=== PATIENT | female | born 1945 | race Two or more races ===

== ENCOUNTER 2019-09-28 14:31 | Emergency (ER) | payer MEDICARE, OTHER ==
[~2019-09-28] VITALS: Ht 165.1 cm; Wt 70.8 kg
--- NOTE | 2019-09-28 14:57 | NUR ---
BIB [facility] C/O FEELING DIZZY X 3 DAYS, NO RELIEF WITH MECLIZINE, TO ER BED 10, HOOKED TO MONITOR, CHANGED TO HOSP GOWN, WARM BLANKET PROVIDED, PATIENT AOx4, BREATHING EVEN AND UNLABORED, NAD NOTED. AWAITING MD LE
--- NOTE | 2019-09-28 14:58 | NUR ---
DR FELIZ AT BEDSIDE
[2019-09-28] MEDS ORDERED: FURO40TA5 PO (15:20)
[2019-09-28] MEDS ORDERED: NIFE-34 PO (15:20)
[2019-09-28] MEDS ORDERED: SERT100T12 PO (15:20)
[2019-09-28] MEDS ORDERED: ACET-1262 PO (15:20)
[2019-09-28] MEDS ORDERED: METO25TA20 PO (15:20)
[2019-09-28] MEDS ORDERED: ASPI-1152 PO (15:20)
[2019-09-28] MEDS ORDERED: HYDR-4077 PO (15:20)
[2019-09-28] MEDS ORDERED: ATOR40TA PO (15:20)
[2019-09-28] MEDS ORDERED: CELE-85 PO (15:20)
[2019-09-28] MEDS ORDERED: CARB1TAB21 PO (15:20)
[2019-09-28] MEDS ORDERED: METF500T20 PO (15:20)
[2019-09-28] MEDS ORDERED: CYAN-51 PO (15:20)
[2019-09-28] MEDS ORDERED: PRAM0.5T11 PO (15:20)
[2019-09-28] MEDS ORDERED: CLOP75TA15 PO (15:20)
[2019-09-28] MEDS ORDERED: MECL-159 PO (15:20)
[2019-09-28] MEDS ORDERED: ALPR0.5T8 PO (15:20)
[2019-09-28] MEDS ORDERED: ERGO500014 PO (15:20)
[2019-09-28] MEDS ORDERED: diphenhydrAMINE HCL 50 MG/ML VIAL ONE (15:20)
[2019-09-28] MEDS ORDERED: MOEX7.5T2 PO (15:20)
[2019-09-28] MEDS ORDERED: DIAZEPAM 5 MG TABLET ONE (15:21)
[2019-09-28 15:25] LABS: BASOPHILS % (AUTO) 0.3 % (0.0-2.0); EOSINOPHILS % (AUTO) 1.7 % (0.0-6.0); HEMATOCRIT 34 % (33-45); HEMOGLOBIN 11.2 g/dL (11.5-14.8); LYMPHOCYTES # (AUTO) 1.1 /CMM (0.8-4.8); LYMPHOCYTES % (AUTO) 16.5 % (20.0-44.0); MEAN CORPUSCULAR HGB CONC 33 g/dl (31.0-36.0); MEAN CORPUSCULAR VOLUME 85 fL (82-100); MONOCYTES # (AUTO) 0.4 /CMM (0.1-1.30); MONOCYTES % (AUTO) 6.9 % (2.0-12.0); NEUTROPHILS # (AUTO) 4.8 /CMM (1.8-8.9); NEUTROPHILS % (AUTO) 74.6 % (43.0-81.0); PLATELET COUNT (AUTO) 250 /CMM (150-450); WHITE BLOOD COUNT (AUTO) 6.4 K/uL (4.3-11.0)
[2019-09-28] MEDS ORDERED: diphenhydrAMINE HCL 50 MG/ML VIAL IV ONE (15:30)
[2019-09-28] MEDS ORDERED: DIAZEPAM 10 MG TABLET PO ONE (15:30)
[2019-09-28 15:37] LABS: CARBON DIOXIDE 29 mmol/L (21-32); CHLORIDE 105 mmol/L (98-107); CREATININE 1.5 mg/dL (0.6-1.3); GLUCOSE 165 mg/dL (74-106); POTASSIUM 4.3 mmol/L (3.5-5.1); SODIUM SERUM 142 mmol/L (136-145); UREA NITROGEN, BLOOD 31 mg/dL (7-18)
[2019-09-28 15:42] LABS: ALANINE AMINOTRANSFERASE < 6 U/L (12-78); ALBUMIN 3.3 g/dL (3.4-5.0); ALKALINE PHOSPHATASE 142 U/L (46-116); ASPARTATE AMINOTRANSFERASE 13 U/L (15-37); BILIRUBIN,DIRECT 0.1 mg/dL (0.0-0.2); BILIRUBIN,TOTAL 0.3 mg/dL (0.2-1.0); TOTAL PROTEIN, SERUM 7.3 g/dL (6.4-8.2)
[2019-09-28] MEDS ORDERED: IV NS 0.9% 1,000 ML BAG IV ONE (16:30)
--- NOTE | 2019-09-28 16:52 | NUR ---
URINE SAMPLE SENT TO LAB
[2019-09-28 16:55] LABS: BILIRUBIN,URINE Negative (NEGATIVE); BLOOD, URINE Negative Ery/uL (NEGATIVE); COLOR,URINE Yellow (YELLOW); KETONES,URINE Negative (NEGATIVE); LEUKOCYTE ESTERASE ,URINE Trace (NEGATIVE); NITRITE, URINE Negative (NEGATIVE); PH,URINE 5.5 (5.0-8.0); PROTEIN,URINE Negative (NEGATIVE); UGLUCOSE Negative (NEGATIVE); UROBILINOGEN,URINE 0.2 EU/dL (0.2)
[2019-09-28 16:56] LABS: APPEARANCE,URINE SLIGHTLY HAZY (CLEAR)
[2019-09-28 17:15] LABS: BACTERIA,URINE Few /HPF (None Seen); RBC,URINE 0-2 /HPF (0-2); SQUAMOUS EPITHELIAL CELL,UR Moderate /HPF (None Seen)
--- NOTE | 2019-09-28 17:58 | NUR ---
IV removed. Catheter intact and site benign. Pressure and 4x4 applied to site. No bleeding noted.Patient discharged to home with family in stable condition. Written and verbal after care instructions given. Patient verbalizes understanding of instruction. Assisted out of the ED via wheelchair.
[2019-09-28 17:59] VITALS: BP 136/67
== END 2019-09-28 18:06 | disposition home or self-care (01) ==
LOC: ER 14:34
DX: R42 Dizziness and giddiness (principal); E86.0 Dehydration; I10 Essential (primary) hypertension; E78.5 Hyperlipidemia, unspecified; E11.9 Type 2 diabetes mellitus without complications; G20 Parkinson's disease; E66.01 Morbid (severe) obesity due to excess calories; Z68.26 Body mass index [BMI] 26.0-26.9, adult; Z95.5 Presence of coronary angioplasty implant and graft; Z98.890 Other specified postprocedural states; Z79.82 Long term (current) use of aspirin; Z79.899 Other long term (current) drug therapy; Z88.8 Allergy status to other drugs, medicaments and biological substances
CPT/HCPCS: 36415; 70450; 71045; 80048; 80076; 81001; 84484; 85025; 85730; 93005; 96361; 96374; 99285; J1200; J7030; 81000-TC

== ENCOUNTER 2022-11-13 23:33 | Emergency (ER) | payer MEDICARE, OTHER ==
[~2022-11-13] VITALS: Ht 165.1 cm; Wt 90.7 kg
[~2022-11-13 23:33] MED LIST: ACET-1262 PO; ALPR0.5T8 PO; ASPI-1420 PO; ATOR40TA PO; CARB1TAB21 PO; CELE-85 PO; CLOP75TA15 PO; CYAN-51 PO; ERGO500093 PO; FURO40TA5 PO; HYDR-4077 PO; MECL-159 PO; METF-881 PO; METO25TA20 PO; MOEX7.5T2 PO; NIFE-34 PO; PRAM0.5T11 PO; SERT100T12 PO
[2022-11-13 23:55] VITALS: BP 134/72
--- NOTE | 2022-11-14 00:33 | NUR ---
Patient discharged to home in stable condition. Written and verbal after care instructions given. Patient verbalizes understanding of instruction.
== END 2022-11-14 00:33 | disposition home or self-care (01) ==
LOC: ER 23:40
DX: R20.2 Paresthesia of skin (principal); G20 Parkinson's disease; R42 Dizziness and giddiness; G89.29 Other chronic pain; I10 Essential (primary) hypertension; E78.5 Hyperlipidemia, unspecified; E11.9 Type 2 diabetes mellitus without complications; Z95.1 Presence of aortocoronary bypass graft; Z79.899 Other long term (current) drug therapy; Z79.84 Long term (current) use of oral hypoglycemic drugs; Z88.1 Allergy status to other antibiotic agents

== ENCOUNTER 2025-03-19 07:13 | Emergency (ER) | payer MEDICARE, OTHER ==
[~2025-03-19] VITALS: Ht 162.6 cm; Wt 82.6 kg
[2025-03-19] MEDS ORDERED: KETOROLAC TROMETHAMINE INJ 30 MG/ML VIAL ONE (07:53)
[2025-03-19] MEDS: KETOROLAC TROMETHAMINE INJ 30 MG/ML VIAL IM ONE (07:59)
[2025-03-19 09:07] VITALS: BP 140/72; TEMP 98.2; O2SAT 100
== END 2025-03-19 09:08 | disposition home or self-care (01) ==
LOC: ER 07:16
DX: M79.604 Pain in right leg (principal); M79.605 Pain in left leg; E11.9 Type 2 diabetes mellitus without complications; E78.5 Hyperlipidemia, unspecified; G20.A1 Parkinson's disease without dyskinesia, without mention of fluctuations; I10 Essential (primary) hypertension; Z79.02 Long term (current) use of antithrombotics/antiplatelets; Z79.1 Long term (current) use of non-steroidal anti-inflammatories (NSAID); Z79.82 Long term (current) use of aspirin; Z79.84 Long term (current) use of oral hypoglycemic drugs; Z79.899 Other long term (current) drug therapy; Z95.5 Presence of coronary angioplasty implant and graft; Z88.8 Allergy status to other drugs, medicaments and biological substances
CPT/HCPCS: 99285; 93970; 96372; J1885

== ENCOUNTER 2025-06-27 18:44 | Emergency (ER) | payer MEDICARE, OTHER ==
[~2025-06-27] VITALS: Ht 162.6 cm; Wt 82.6 kg
[2025-06-27 18:44] VITALS: TEMP 98.3
[2025-06-27] MEDS ORDERED: hydrALAZINE HCL IV 20 MG VIAL ONE (19:04)
[2025-06-27] MEDS: hydrALAZINE HCL IV 20 MG VIAL IV ONE (19:07)
[2025-06-27 19:27] LABS: PLATELET COUNT (AUTO) 189 K/uL (150-450); RED BLOOD CELL COUNT(AUTO) 3.87 MIL/uL (4.0-5.2); RED CELL DISTRIBUTION WIDTH 13.6 % (11.5-15.0); WHITE BLOOD COUNT (AUTO) 6.5 K/uL (4.3-11.0)
[2025-06-27 19:34] LABS: CALCIUM, SERUM 9.1 mg/dL (8.5-10.1); CREATININE 2.3 mg/dL (0.6-1.3); SODIUM SERUM 136 mmol/L (136-145); UREA NITROGEN, BLOOD 45 mg/dL (7-18)
[2025-06-27 21:34] VITALS: BP 168/87; O2SAT 97
== END 2025-06-27 20:50 | disposition home or self-care (01) ==
LOC: ER 18:50
DX: I16.0 Hypertensive urgency (principal); R42 Dizziness and giddiness; E11.9 Type 2 diabetes mellitus without complications; E78.5 Hyperlipidemia, unspecified; I10 Essential (primary) hypertension; G20.A1 Parkinson's disease without dyskinesia, without mention of fluctuations; Z79.82 Long term (current) use of aspirin; Z79.84 Long term (current) use of oral hypoglycemic drugs; Z79.899 Other long term (current) drug therapy
CPT/HCPCS: 99285; 96374; 70450; 71045; 93005; 85025; 80048; 36415; 84484; J0360

== ENCOUNTER 2025-06-29 18:56 | Emergency (ER) | payer MEDICARE, OTHER ==
[~2025-06-29] VITALS: Ht 162.6 cm; Wt 72.6 kg
[2025-06-29 19:05] VITALS: TEMP 98.3
[2025-06-29] MEDS ORDERED: ACETAMINOPHEN 325 MG TABLET ONE (21:36)
[2025-06-29] MEDS ORDERED: IBUPROFEN 600 MG TABLET ONE (21:37)
[2025-06-29] MEDS: IBUPROFEN 600 MG TABLET PO ONE (21:40)
[2025-06-29] MEDS: ACETAMINOPHEN 325 MG TABLET PO ONE (21:40)
[2025-06-29 21:55] VITALS: BP 189/80; O2SAT 99
== END 2025-06-29 21:56 | disposition home or self-care (01) ==
LOC: ER 18:57
DX: M25.561 Pain in right knee (principal); E11.9 Type 2 diabetes mellitus without complications; I10 Essential (primary) hypertension; E78.5 Hyperlipidemia, unspecified; F02.80 Dementia in other diseases classified elsewhere, unspecified severity, without behavioral disturbance, psychotic disturbance, mood disturbance, and anxiety; G20.A1 Parkinson's disease without dyskinesia, without mention of fluctuations; Z79.82 Long term (current) use of aspirin; Z79.84 Long term (current) use of oral hypoglycemic drugs; Z85.3 Personal history of malignant neoplasm of breast; Z79.899 Other long term (current) drug therapy
CPT/HCPCS: 73564-TC